=== PATIENT | female | born 1990 ===

== ENCOUNTER 2021-09-27 20:55 | Emergency (ER) | payer OTHER ==
[2021-09-27 22:40] VITALS: BP 120/77
[2021-09-27 23:08] LABS: Mucus,Urine FEW /HPF; WBC,Urine < 1.0 /HPF (0.0-6.0)
[2021-09-27 23:14] LABS: Bilirubin,Urine Negative (Negative); Blood,Urine Negative (Negative); Color,Urine Yellow (Yellow); Protein,Urine <15 mg/dL mg/dL (Negative); Urobilinogen,Urine < 2.0 mg/dL (<2.0)
== END 2021-09-27 21:00 | disposition left against medical advice (07) ==
LOC: ED 20:55
DX: N89.8 Other specified noninflammatory disorders of vagina (principal); A49.9 Bacterial infection, unspecified; Z53.21 Procedure and treatment not carried out due to patient leaving prior to being seen by health care provider
CPT/HCPCS: 81001; 87086